=== PATIENT | female | born 1990 | race Two or more races ===

== ENCOUNTER → 2020-10-24 | Outpatient (CLI) | payer MEDICAID | END | disposition home or self-care (01) | LOC: OB 14:37 | PROVIDERS: ATTEND Specialist | DX: O32.1XX0 Maternal care for breech presentation, not applicable or unspecified (principal); Z3A.20 20 weeks gestation of pregnancy | CPT/HCPCS: 76805 ==

== ENCOUNTER 2021-02-18 06:02 | Inpatient (IN) | payer MEDICAID ==
[~2021-02-18] VITALS: Ht 154.9 cm; Wt 77.1 kg
[2021-02-18 07:31] LABS: Urine Bacteria FEW /hpf (None Seen); Urine Blood 3+ /uL (Negative); Urine Mucus FEW (None Seen); Urine Specific Gravity 1.013 (1.001-1.035); Urine WBC 6 /hpf (0 - 5)
[2021-02-18 07:43] LABS: Amphetamine Screen, Urine NEGATIVE (NEGATIVE); Barbiturate Scree,Urine NEGATIVE (NEGATIVE); Benzodiazephine Screen, Urine NEGATIVE (NEGATIVE); Cannabinoid Screen, Urine NEGATIVE (NEGATIVE); Cocaine Screen, Urine NEGATIVE (NEGATIVE); Opiate Scree,Urine NEGATIVE (NEGATIVE); Phencyclidine Screen, Urine NEGATIVE (NEGATIVE)
[2021-02-18] MEDS ORDERED: BETAMETHASONE ACET (6MG/ML) 5ML VIAL IM ONE (08:30)
[2021-02-18] MEDS ORDERED: WITCH HAZEL-GLYCERIN PAD TOP PRN (08:45)
[2021-02-18] MEDS ORDERED: LIDOCAINE 2%HCL (LOCAL ANESTH.) INJ 20ML MDV IJ ONE (08:45)
[2021-02-18] MEDS ORDERED: PROMETHAZINE HCL 25 MG/ML 1ML IV PRN (08:45)
[2021-02-18] MEDS ORDERED: PHISODERM TOP SOLN 240ML BTL TOP PRN (08:45)
[2021-02-18] MEDS ORDERED: NALBUPHINE HCL 10 MG/1ml INJECTION IV PRN (08:45)
[2021-02-18] MEDS ORDERED: LACTATED RINGER'S 1,000 ML IV SCH (08:45)
[2021-02-18] MEDS ORDERED: PENICILLIN G POT 5MIL/D5 50ML 50 ML IV ONE (09:30)
[2021-02-18] MEDS ORDERED: CARBOPROST TROMETHAMINE 250 MCG/1ML VIAL IM ONE (09:45)
[2021-02-18] MEDS ORDERED: LACT. RINGERS/OXYTOCIN 20UNITS 1,000 ML IV ONE (09:45)
[2021-02-18] MEDS ORDERED: METHYLERGONOVINE MALEATE 0.2 MG/ML AMP IM ONE ×2 (09:45→10:28)
[2021-02-18] MEDS: DERMOPLAST 60ML BOTTLE TOP PRN (09:53)
[2021-02-18 10:00] LABS: Basophils # (auto) 0 10 ^3/uL (0-0.2); Basophils % (auto) 0.3 % (0.0-2.0); Eosinophils # (auto) 0 10 ^3/uL (0-0.8); Eosinophils % (auto) 0.5 % (0.0-7.0); Hematocrit 37.2 % (36.0-46.0); Hemoglobin 12.5 g/dL (12.2-16.2); Lymphocytes # (auto) 1.6 10 ^3/uL (0.4-5.4); Lymphocytes % (auto) 16.3 % (10.0-50.0); Mean Corpuscular Hemoglobin 30.3 pg (28.0-32.0); Mean Corpuscular Hgb Conc. 33.6 g/dL (32.0-36.0); Monocytes # (auto) 0.7 10 ^3/uL (0-1.3); Monocytes % (auto) 6.9 % (0.0-12.0); Neutrophils # (auto) 7.5 10 ^3/uL (1.6-8.6); Nucleated Red Blood Cells % 0.2 %; Platelet Count (auto) 212 10^3/uL (140-450); Red Blood Cells 4.13 10^6/uL (4.0-5.20); Red Cell Distribution Width 13.6 % (11.8-14.3); White Blood Cell 9.9 10^3/uL (4.4-10.8)
[2021-02-18] MEDS ORDERED: LACT. RINGER'S W OXYTOCIN 20UNITS/1000 ML IV ONE (10:08)
[2021-02-18 10:10] LABS: INR 0.94 (0.9-1.15); Partial Thromboplastin Time 23.8 sec (23.0-31.2)
[2021-02-18 10:11] LABS: Albumin 2.9 g/dL (3.4-5.0); Calcium 9.6 mg/dL (8.5-10.1); Potassium 3.8 mmol/L (3.5-5.1)
[2021-02-18] MEDS ORDERED: LIDOCAINE 2%HCL (LOCAL ANESTH.) INJ 20ML MDV ONE (10:12)
[2021-02-18 10:16] LABS: BUN/Creatinine Ratio 14.3; Bilirubin, Total 0.4 mg/dL (0.2-1.0); Uric Acid 4.2 mg/dL (2.6-6.0)
[2021-02-18] MEDS ORDERED: LACT. RINGERS/OXYTOCIN 20UNITS 500 ML IV SCH (10:45)
[2021-02-18] MEDS ORDERED: ACETAMINOPHEN 325 MG TAB PO PRN (11:45)
[2021-02-18] MEDS ORDERED: PENICILLIN G POTASSIUM 2,500,000 UNITS in D5W 5% 50 ML IV SCH (13:30)
[2021-02-18 15:00] VITALS: BP 118/77
[2021-02-18 19:10] VITALS: BP 121/75
[2021-02-18 23:20] VITALS: BP 112/77
[2021-02-18] MEDS: IBUPROFEN 600 MG TAB PO PRN (23:31)
[2021-02-19] VITALS (7 sets, daily range): BP systolic 101–125; BP diastolic 62–77
[2021-02-19] MEDS ORDERED: DOCUSATE CALCIUM 240 MG CAP PO SCH (10:00)
[2021-02-20] MEDS: IBUPROFEN 600 MG TAB PO PRN (00:50)
[2021-02-20 03:25] VITALS: BP 114/78
[2021-02-20] MEDS: DERMOPLAST 60ML BOTTLE TOP PRN (04:48)
[2021-02-20 06:06] LABS: RPR Non Reactive (Non Reactive)
[2021-02-20 06:35] VITALS: BP 109/76
[2021-02-20] MEDS ORDERED: PREN-96 PO (06:48)
== END 2021-02-20 08:15 | disposition home or self-care (01) | DRG 560 ==
LOC: LDRP 06:02 → OBSVTOIN 08:38 → LDRP 08:39
PROVIDERS: ADMIT Obstetrics & Gynecology; ATTEND Obstetrics & Gynecology
PROC: 10E0XZZ Delivery of Products of Conception, External Approach (ICD-10-PCS; principal; 2021-02-18)
PROC: 0KQM0ZZ Repair Perineum Muscle, Open Approach (ICD-10-PCS; 2021-02-18)
PROC: 0UQMXZZ Repair Vulva, External Approach (ICD-10-PCS; 2021-02-18)
DX: O69.81X0 Labor and delivery complicated by cord around neck, without compression, not applicable or unspecified (principal); O42.913 Preterm premature rupture of membranes, unspecified as to length of time between rupture and onset of labor, third trimester; Z37.0 Single live birth; Z20.822 Contact with and (suspected) exposure to COVID-19; Z3A.37 37 weeks gestation of pregnancy; O70.1 Second degree perineal laceration during delivery; O71.82 Other specified trauma to perineum and vulva
CPT/HCPCS: 36415; 59025; 59409; 76818; 80053; 80307; 81001; 81002; 84112; 84550; 85025; 85610; 85730; 86592; 86850; 86900; 86901; 87426; 94760; 96360; 96361; 96365; 96366; 96372; G0378; J2540; J2590; J7060